=== PATIENT | female | born 1985 | race African-American/Black ===

== ENCOUNTER 2016-06-02 05:02 | Emergency (ER) | payer SELFPAY ==
[2016-06-02] MEDS ORDERED: Benzonatate 100 MG CAP ONE (05:40)
== END 2016-06-02 05:49 | disposition home or self-care (01) ==
LOC: NAV ERS 05:02
DX: J06.9 Acute upper respiratory infection, unspecified (principal)
CPT/HCPCS: 99283

== ENCOUNTER 2023-05-03 11:53 | Emergency (ER) | payer BC, SELFPAY ==
[2023-05-03] MEDS ORDERED: Acetaminophen 500 MG TAB ONE (12:08)
[2023-05-03] MEDS ORDERED: Oseltamivir 75 MG CAP ONE (12:36)
== END 2023-05-03 12:41 | disposition home or self-care (01) ==
LOC: NAV ERS 11:53
DX: J10.1 Influenza due to other identified influenza virus with other respiratory manifestations (principal)
CPT/HCPCS: 87804; 99283

== ENCOUNTER 2023-11-18 14:24 | Emergency (ER) | payer SELFPAY ==
[2023-11-18] MEDS ORDERED: Tetracaine 0.5% PF 4 ML BOT ONE (14:41)
[2023-11-18] MEDS ORDERED: Fluorescein Opthalmic Strip ONE (14:41)
== END 2023-11-18 15:05 | disposition home or self-care (01) ==
LOC: NAV ERS 14:24
DX: B30.9 Viral conjunctivitis, unspecified (principal)
CPT/HCPCS: 99283